=== PATIENT | male | born 1970 | race Caucasian/White ===

== ENCOUNTER 2018-11-08 20:26 | Emergency (ER) | payer MEDICAID ==
[~2018-11-08] VITALS: Ht 177.8 cm; Wt 83.9 kg
--- NOTE | 2018-11-08 20:35 | NUR ---
[id number]/[employer] FROM STREET FOR BIZARRE BEHAVIOR. PT ADMITTING TO "ROLLING" AND HAVING TELEPATHIC CONVERSATIONS WITH FATHER AND FLIGHT OF IDEAS. PT AOX4, RR EVEN AND UNLABORED. NO SOB NOTED. NO NVD AT THIS TIME. PT PLACED ON MONITOR WAITING FOR MD HADDAD.
--- NOTE | 2018-11-08 20:39 | NUR ---
DR. ROSAS AT BEDSIDE FOR EVAL.
[2018-11-08] MEDS ORDERED: HALOPERIDOL LACTATE INJ 5 MG/ML VIAL ONE (20:45)
[2018-11-08] MEDS ORDERED: IV NS 0.9% 500 ML BAG IV ONE (21:00)
[2018-11-08] MEDS ORDERED: HALOPERIDOL LACTATE INJ 5 MG/ML VIAL IVP ONE (21:00)
--- NOTE | 2018-11-08 21:00 | NUR ---
ADDENDUM: Intravenous End Time Documentation: Normal saline 500 cc (IV-WO): start time: 2100 PM ; end time: 0 PM : IV site: LA # 18 Port #1
[2018-11-08 22:07] LABS: BASOPHILS # (AUTO) 0.1 /CMM (0.0-0.2); BASOPHILS % (AUTO) 0.4 % (0.0-2.0); EOSINOPHILS % (AUTO) 0.1 % (0.0-6.0); HEMATOCRIT 46 % (39-51); HEMOGLOBIN 15.8 g/dL (13.5-17.5); LYMPHOCYTES # (AUTO) 0.8 /CMM (0.8-4.8); LYMPHOCYTES % (AUTO) 5.2 % (20.0-44.0); MEAN CORPUSCULAR HGB CONC 35 g/dl (31.0-36.0); MEAN CORPUSCULAR VOLUME 89 fL (80-96); MONOCYTES % (AUTO) 6.7 % (2.0-12.0); NEUTROPHILS # (AUTO) 13.6 /CMM (1.8-8.9); NEUTROPHILS % (AUTO) 87.6 % (43.0-81.0); PLATELET COUNT (AUTO) 262 /CMM (150-450); RED BLOOD CELL COUNT(AUTO) 5.11 MIL/uL (4.5-6.0); WHITE BLOOD COUNT (AUTO) 15.5 K/uL (4.3-11.0)
[2018-11-08 22:16] LABS: CALCIUM, SERUM 9.4 mg/dL (8.5-10.1); CARBON DIOXIDE 23 mmol/L (21-32); CHLORIDE 102 mmol/L (98-107); CREATININE 1.2 mg/dL (0.6-1.3); GLUCOSE 84 mg/dL (74-106); POTASSIUM 3.5 mmol/L (3.5-5.1); SODIUM SERUM 138 mmol/L (136-145); UREA NITROGEN, BLOOD 20 mg/dL (7-18)
[2018-11-08 22:22] LABS: ALANINE AMINOTRANSFERASE 33 U/L (12-78); ALBUMIN 4.4 g/dL (3.4-5.0); ALKALINE PHOSPHATASE 99 U/L (46-116); ASPARTATE AMINOTRANSFERASE 55 U/L (15-37); BILIRUBIN,DIRECT 0.2 mg/dL (0.0-0.2); BILIRUBIN,TOTAL 0.7 mg/dL (0.2-1.0); SALICYLATE 5.7 mg/dL (2.8-20.0); TOTAL PROTEIN, SERUM 7.8 g/dL (6.4-8.2)
[2018-11-08 22:24] LABS: ACETAMINOPHEN < 2 ug/ml (10-30); ALCOHOL, BLOOD < 3 mg/dL (0-0)
--- NOTE | 2018-11-08 22:35 | NUR ---
[place] FREIRE FOR PT EVAL
[2018-11-08 23:10] LABS: THYROID STIMULATING HORMONE 0.707 uIU/mL (0.358-3.74)
--- NOTE | 2018-11-09 00:12 | NUR ---
REPORT GIVEN TO [facility] FOR CONTINUITY OF CARE. PT APPEARS COMFORTABLE AT THIS TIME. NO ACUTE DISTRESS NOTED.
[2018-11-09 05:30] VITALS: BP 122/78
== END 2018-11-09 05:31 | disposition home or self-care (01) ==
LOC: ER 20:30
DX: R46.1 Bizarre personal appearance (principal)
CPT/HCPCS: 36415; 80048; 80076; 80305; 80307; 80329; 84443; 84484; 85025; 96372; 99284; G0480; J1630; J7040